=== PATIENT | female | born 1960 | race Hispanic/Latino ===

== ENCOUNTER 2018-01-02 19:56 | Emergency (ER) | payer OTHER ==
[2018-01-02] MEDS ORDERED: KETOROLAC 30 MG/ML INJ ONE (20:15)
--- NOTE | 2018-01-02 21:02 | RAD REPORT ---
EXAM DESCRIPTION: RAD - Knee Left 3 View - 01/02/2018 8:57 pm CLINICAL HISTORY: PAIN COMPARISON: No comparisons FINDINGS: No fracture, dislocation or aggressive marrow lesion is observed. No significant joint eff usion is seen.
--- NOTE | 2018-01-02 21:07 | ER ---
Nurse's Notes [facility] Name: Rach Booker Age: 57 yrs Sex: Female : 1960 Arrival Date: 01/02/2018 Time: 19:58 Bed 14 Private MD: out of town, doctor Diagnosis: Pain in left knee Presentation: 01/02 20:00 Presenting complaint: Patient states: that her left knee has been aching x 1 week then fc today she attempted to get up and heard a pop. She then started to have severe pain to left knee and is unable to ambulate on it. Transition of care: patient was not received from another setting of care. Onset of symptoms was December 26, 2017. Risk Assessment: Do you want to hurt yourself or someone else? Patient reports no desire to harm self or others. Initial Sepsis Screen: Does the patient meet any 2 criteria? No. Patient's initial sepsis screen is negative. Does the patient have a suspected source of infection? No. Patient's initial sepsis screen is negative. Care prior to arrival: Medication(s) given: Tylenol, last at 1700. 20:00 Method Of Arrival: Wheelchair fc 20:00 Acuity: HUMBERTO 4 Triage Assessment: 20:14 General: Appears uncomfortable, Behavior is calm, cooperative, appropriate for age. fc Pain: Complains of pain in left leg Pain currently is 6 out of 10 on a pain scale. at worst was 10 out of 10 on a pain scale. Quality of pain is described as aching, sharp, throbbing, Pain began 1 week ago Is continuous, Aggravated by increased activity, repositioning, weight bearing. Historical: - Allergies: 20:12 No Known Allergies; fc - Home Meds: 20:12 Lotrel Oral once daily [Active]; fc - PMHx: 20:12 Hypertension; [place]; fc - PSHx: 20:12 Knee surgery; fc - Immunization history:: Last tetanus immunization: up to date. - Social history:: Patient/guardian denies using alcohol, street drugs, The patient lives with family, Smoking status: Patient/guardian denies using tobacco, Patient/guardian denies using. - Family history:: not pertinent. - Ebola Screening: : Patient negative for fever greater than or equal to 101.5 degrees Fahrenheit, and additional compatible Ebola Virus Disease symptoms Patient denies exposure to infectious person Patient denies travel to an Ebola-affected area in the 21 days before illness onset. Screenin:13 Abuse screen: Denies threats or abuse. Nutritional screening: No deficits noted. Tuberculosis screening: No symptoms or risk factors identified. Fall Risk None identified. Assessment: 20:20 General: Appears uncomfortable, Behavior is calm, cooperative, appropriate for age. ea Pain: Complains of pain in left knee Pain does not radiate. Pain currently is 8 out of 10 on a pain scale. Quality of pain is described as aching, Pain began this AM Aggravated by movement. Neuro: Level of Consciousness is awake, alert, obeys commands, Oriented to person, place, time, situation. Cardiovascular: Patient's skin is warm and dry. Respiratory: Airway is patent Respiratory effort is even, unlabored, Respiratory pattern is regular, symmetrical. GI: No signs and/or symptoms were reported involving the gastrointestinal system. : No signs and/or symptoms were reported regarding the genitourinary system. EENT: No signs and/or symptoms were reported regarding the EENT system. Derm: Skin is pink, warm \T\ dry. Musculoskeletal: Swelling present in left knee Reports pain in left knee. 21:10 Reassessment: Patient and/or family updated on plan of care and expected duration. Pain ea level reassessed. Patient is alert, oriented x 3, equal unlabored respirations, skin warm/dry/pink. Discharge instruction given to patient, verbalized the understanding of instruction. Vital Signs: 20:00 BP 143 / 65; Pulse 78; Resp 20; Temp 98.1(O); Pulse Ox 98% on R/A; Weight 90.72 kg (R); Height 5 ft. 2 in. (157.48 cm) (R); Pain 6/10; 21:00 BP 127 / 68; Pulse 75; Resp 18; Temp 98.2; Pulse Ox 99% ; Pain 4/10; ea 20:00 Body Mass Index 36.58 (90.72 kg, 157.48 cm) ED Course: 19:58 Patient arrived in ED. am2 19:58 out of town, doctor is Private Physician. am2 19:59 Salma Buchanan MD is Attending Physician. ma2 20:00 Arm band placed on Patient placed in an exam room, on a stretcher. fc 20:08 Diann Moore, RN is Primary Nurse. ea 20:11 Triage completed. fc 20:13 Patient has correct armband on for positive identification. Bed in low position. Call fc light in reach. Side rails up X 1. 20:13 No provider procedures requiring assistance completed. fc 20:54 Knee Left 3 View XRAY In Process Unspecified. EDMS 20:54 X-ray completed. Portable x-ray completed in exam room. Patient tolerated procedure bb2 well. 21:18 Patient did not have IV access during this emergency room visit. ea Administered Medications: 20:16 Drug: TORadol 60 mg Route: IM; Site: right gluteus; ea 21:00 Follow up: Response: No adverse reaction; Pain is decreased ea Outcome: 21:06 Discharge ordered by . maDominic 21:18 Discharged to home with crutches, with significant other. ea 21:18 Condition: improved 21:18 Discharge instructions given to patient, Instructed on discharge instructions, follow up and referral plans. medication usage, Demonstrated understanding of instructions, follow-up care, medications, Prescriptions given X 1. 21:20 Patient left the ED. ea Signatures: Dispatcher [employer] EDMS Ivett Alcazar RN RN fc Bethany Baker am2 Diann Moore RN RN ea Radha Pacheco bb2 Salma Buchanan MD MD ma2 Corrections: (The following items were deleted from the chart) 20:13 20:12 BP 143 / 65; Pulse 78bpm; Resp 20bpm; Pulse Ox 98% RA; Temp 98.1F Oral; 90.72 kg fc Reported; Height 5 ft. 2 in. Reported; BMI: 36.5; Pain 6/10; fc
--- NOTE | 2018-01-02 21:07 | EDPHYS ---
Physician Documentation [facility] Name: Rach Booker Age: 57 yrs Sex: Female : 1960 Arrival Date: 01/02/2018 Time: 19:58 Bed 14 Private MD: out of town, doctor ED Physician Salma Buchanan HPI: 01/02 20:08 This 57 yrs old Female presents to ER via Unassigned with complaints of Knee ma2 Pain. 20:08 The patient presents with pain. The complaints affect the left knee. Onset: The ma2 symptoms/episode began/occurred gradually, 1 day(s) ago. Modifying factors: The symptoms are alleviated by nothing. the symptoms are aggravated by movement. Associated signs and symptoms: Pertinent negatives calf tenderness, fever, numbness, rash, swelling, tingling, vomiting. Severity of symptoms: At their worst the symptoms were moderate, in the emergency department the symptoms have improved. Historical: - Allergies: 20:12 No Known Allergies; fc - Home Meds: 20:12 Lotrel Oral once daily [Active]; fc - PMHx: 20:12 Hypertension; [place]; fc - PSHx: 20:12 Knee surgery; fc - Immunization history:: Last tetanus immunization: up to date. - Social history:: Patient/guardian denies using alcohol, street drugs, The patient lives with family, Smoking status: Patient/guardian denies using tobacco, Patient/guardian denies using. - Family history:: not pertinent. - Ebola Screening: : Patient negative for fever greater than or equal to 101.5 degrees Fahrenheit, and additional compatible Ebola Virus Disease symptoms Patient denies exposure to infectious person Patient denies travel to an Ebola-affected area in the 21 days before illness onset. ROS: 20:08 Constitutional: Negative for fever, chills, and weight loss, ENT: Negative for injury, ma2 pain, and discharge. 20:08 MS/extremity: Positive for pain, Negative for injury or acute deformity, deformity, erythema, puncture, rash, tingling. 20:08 All other systems are negative. Exam: 20:08 Constitutional: This is a well developed, well nourished patient who is awake, alert, ma2 and in no acute distress. Head/Face: Normocephalic, atraumatic. Eyes: Pupils equal round and reactive to light, extra-ocular motions intact. Lids and lashes normal. Conjunctiva and sclera are non-icteric and not injected. Cornea within normal limits. Periorbital areas with no swelling, redness, or edema. Chest/axilla: Normal chest wall appearance and motion. Nontender with no deformity. No lesions are appreciated. Cardiovascular: Regular rate and rhythm with a normal S1 and S2. No gallops, murmurs, or rubs. Normal PMI, no JVD. No pulse deficits. Respiratory: Lungs have equal breath sounds bilaterally, clear to auscultation and percussion. No rales, rhonchi or wheezes noted. No increased work of breathing, no retractions or nasal flaring. Abdomen/GI: Soft, non-tender, with normal bowel sounds. No distension or tympany. No guarding or rebound. No evidence of tenderness throughout. 20:08 Neuro: Awake and alert, GCS 15, oriented to person, place, time, and situation. Cranial nerves II-XII grossly intact. Motor strength 5/5 in all extremities. Sensory grossly intact. Cerebellar exam normal. Normal gait. 20:08 Musculoskeletal/extremity: ROM: limited active range of motion, limited passive range of motion, left knee, Pulses: are normal with no appreciated deficits, Sensation intact. Joints: Tendon exam: Vital Signs: 20:00 BP 143 / 65; Pulse 78; Resp 20; Temp 98.1(O); Pulse Ox 98% on R/A; Weight 90.72 kg (R); fc Height 5 ft. 2 in. (157.48 cm) (R); Pain 6/10; 21:00 BP 127 / 68; Pulse 75; Resp 18; Temp 98.2; Pulse Ox 99% ; Pain 4/10; ea 20:00 Body Mass Index 36.58 (90.72 kg, 157.48 cm) fc MDM: 20:01 Patient medically screened. ma2 20:08 Differential diagnosis: closed fracture, contusion, abrasion, tendonitis. ma2 21:05 Data reviewed: vital signs, nurses notes, radiologic studies. Test interpretation: by [facility] ED physician or midlevel provider: plain radiologic studies. Counseling: I had a detailed discussion with the patient and/or guardian regarding: the historical points, exam findings, and any diagnostic results supporting the discharge/admit diagnosis, the presence of at least one elevated blood pressure reading (>120/80) during this emergency department visit, the need for outpatient follow up. Response to treatment: the patient's symptoms have markedly improved after treatment. 01/02 20:08 Order name: Knee Left 3 View XRAY; Complete Time: 21:05 ma2 01/02 20:08 Order name: Knee Immobilizer; Complete Time: 21:17 ma2 01/02 21:05 Order name: Crutches; Complete Time: 21: ma2 Administered Medications: 20:16 Drug: TORadol 60 mg Route: IM; Site: right gluteus; ea 21:00 Follow up: Response: No adverse reaction; Pain is decreased ea Disposition: 01/02/18 21:06 Discharged to Home. Impression: Pain in left knee. - Condition is Stable. - Discharge Instructions: Knee Pain, [id number]. - Prescriptions for Tylenol- Codeine #3 300-30 mg Oral Tablet - take 2 tablet by ORAL route every 6 hours As needed; 30 tablet. - Medication Reconciliation Form, Thank You Letter, Antibiotic Education, Prescription Opioid Use form. - Follow up: Private Physician; When: Tomorrow; Reason: Continuance of care. - Problem is new. - Symptoms have improved. Signatures: Dispatcher [employer] Ivett Houser RN RN Diann Wagner RN RN ea Alzahri, Mohammad, MD MD ma2 Corrections: (The following items were deleted from the chart) 21:20 21:06 01/02/2018 21:06 Discharged to Home. Impression: Pain in left knee. Condition is ea Stable. Forms are Medication Reconciliation Form, Thank You Letter, Antibiotic Education, Prescription Opioid Use. Follow up: Private Physician; When: Tomorrow; Reason: Continuance of care. Problem is new. Symptoms have improved. ma2
== END 2018-01-02 21:20 | disposition home or self-care (01) ==
LOC: ER 19:56
DX: M25.562 Pain in left knee (principal); I10 Essential (primary) hypertension
CPT/HCPCS: 96372; 99283